=== PATIENT | female | born 1945 | race Caucasian/White ===

== ENCOUNTER 2021-06-21 14:17 | Inpatient (IN) | payer MEDICARE, OTHER ==
[~2021-06-21] VITALS: Ht 160 cm; Wt 79.8 kg
--- NOTE | 2021-06-21 14:36 | NUR ---
[id number] FOR GEN BODY WEAKNESS AND INCREASED CONFUSION X 2 WEEKS. C/O ABDOMINAL PAIN SINCE LAST NIGHT. THE PATIENT IS ALERT AND ORIENTED X1. IN ROOM AIR AND DENIES SOB. RESPIRATION REGULAR AND UNLABORED. ATTACHED TO THE MONITOR. WARM BLANKET PROVIDED FOR COMFORT. WILL CONTINUE TO MONITOR THE PATIENT.
--- NOTE | 2021-06-21 14:58 | NUR ---
SON IS CRISS [phone] AND ACUPUNCTURE PHYSICIAN.
[2021-06-21] MEDS ORDERED: IV NS 0.9% 1,000 ML BAG IV ONE (15:00)
--- NOTE | 2021-06-21 15:10 | NUR ---
IV LINE IS ESTABLISHED, BLOOD SPECIMEN COLLECTED AND SENT TO THE LAB. THE LINE IS SALINE LOCKED.
--- NOTE | 2021-06-21 15:11 | NUR ---
RN DRAWN LABS, CALLED MAIN LAB FOR VIDEO SOFTWARE ENGINEER
--- NOTE | 2021-06-21 15:17 | NUR ---
THE PATIENT IS TAKEN TO CT VIA RNEY
[2021-06-21 15:25] LABS: BASOPHILS % (AUTO) 0.4 % (0.0-2.0); HEMATOCRIT 42 % (33-45); HEMOGLOBIN 14.1 g/dL (11.5-14.8); LYMPHOCYTES # (AUTO) 0.9 K/uL (0.8-4.8); LYMPHOCYTES % (AUTO) 18.6 % (20.0-44.0); MEAN CORPUSCULAR HGB CONC 34 g/dl (31.0-36.0); MEAN CORPUSCULAR VOLUME 88 fL (82-100); MONOCYTES # (AUTO) 0.5 K/uL (0.1-1.30); MONOCYTES % (AUTO) 9.3 % (2.0-12.0); NEUTROPHILS # (AUTO) 3.5 K/uL (1.8-8.9); NEUTROPHILS % (AUTO) 71.7 % (43.0-81.0); PLATELET COUNT (AUTO) 158 K/uL (150-450); RED BLOOD CELL COUNT(AUTO) 4.74 MIL/uL (4.0-5.2); WHITE BLOOD COUNT (AUTO) 4.8 K/uL (4.3-11.0)
[2021-06-21 16:00] LABS: ALANINE AMINOTRANSFERASE 23 U/L (12-78); ALBUMIN 3.2 g/dL (3.4-5.0); ALKALINE PHOSPHATASE 49 U/L (46-116); ASPARTATE AMINOTRANSFERASE 33 U/L (15-37); BILIRUBIN,DIRECT 0.2 mg/dL (0.0-0.2); BILIRUBIN,TOTAL 0.4 mg/dL (0.2-1.0); CALCIUM, SERUM 8.1 mg/dL (8.5-10.1); CARBON DIOXIDE 28 mmol/L (21-32); CHLORIDE 98 mmol/L (98-107); CREATININE 0.9 mg/dL (0.6-1.3); GLUCOSE 106 mg/dL (74-106); POTASSIUM 3.4 mmol/L (3.5-5.1); SODIUM SERUM 137 mmol/L (136-145); TOTAL PROTEIN, SERUM 7.7 g/dL (6.4-8.2); UREA NITROGEN, BLOOD 10 mg/dL (7-18)
--- NOTE | 2021-06-21 16:20 | NUR ---
LAB CALLED LACTIC ACID 2.2
--- NOTE | 2021-06-21 16:44 | NUR ---
urine collected and sent to the lab
--- NOTE | 2021-06-21 16:45 | NUR ---
covid antigen swab done and sent to the lab
[2021-06-21 18:00] LABS: BILIRUBIN,URINE NEGATIVE (NEGATIVE); COLOR,URINE YELLOW (YELLOW); LEUKOCYTE ESTERASE ,URINE TRACE (NEGATIVE); NITRITE, URINE POSITIVE (NEGATIVE); PROTEIN,URINE 30 mg/dl (NEGATIVE); UGLUCOSE NEGATIVE (NEGATIVE); UROBILINOGEN,URINE 0.2 EU/dL (0.2)
[2021-06-21 18:25] LABS: WBC,URINE 51-80 /HPF (0-3)
[2021-06-21 18:26] LABS: BACTERIA,URINE 4+ /HPF (None Seen); SQUAMOUS EPITHELIAL CELL,UR Few /HPF (None Seen)
--- NOTE | 2021-06-21 19:21 | NUR ---
REPORT GIVEN TO NURSE FELIX FOR MARLI
[2021-06-21] MEDS ORDERED: CEFTRIAXONE 1GM BAG (ER ONLY) 50 ML IV ONE ×2 (19:30→20:11)
[2021-06-21] MEDS ORDERED: Z GUARD REMEDY 4 OZ OINT TP PRN (22:00)
[2021-06-21] MEDS ORDERED: ONDANSETRON HCL/PF 4 MG/2 ML VIAL IVP PRN (22:00)
[2021-06-21] MEDS ORDERED: MAGNESIUM HYDROXIDE 30 ML UDC PO PRN (22:00)
--- NOTE | 2021-06-21 22:07 | NUR ---
RN NOTE REPORT RECEIVED BY JOSE TAMAYO, FOR MARLI.
--- NOTE | 2021-06-21 22:07 | NUR ---
REPORT GIVEN TO DIANA RICHMOND RN FOR MARLI
[2021-06-21] MEDS ORDERED: AZITHROMYCIN 500 MG in IV D5W 250 ML IV SCH (22:30)
[2021-06-21] MEDS ORDERED: POTASSIUM CHLORIDE 20 MEQ TAB.PRT.SR PO ONE (22:30)
--- NOTE | 2021-06-21 22:38 | NUR ---
TRANSFERRED TO 108 UNDER ACLS
[2021-06-21 22:52] VITALS: BP 139/60
--- NOTE | 2021-06-21 22:52 | NUR ---
RN NOTE PT TRANSFERRED TO [facility] VIA GURNEY FROM ER. PT IS ON 3L OF O2 VIA NC SHOWING NO S/S OF RESP DISTRESS. CURRENT OXYGEN SATURATION ON 3L IS 96%. PT IS CONFUSED, ALERT AND ORIENTED X1, ONLY TO NAME. ON CLAY DRY PRESS MIXER OPERATOR SHOWING SB. SKIN INTACT. ON CARDIAC DIET. IV ACCESS NOTED ON LEFT WRIST #20, LINE FLUSHED, PATENT, AND INTACT WITH NO SIGNS OF INFILTRATION. PT HAD TEMPERATURE OF 100.1. TYLENOL GIVEN AND COOLING MEASURES PROVIDED. WILL RE-ASSESS PATIENT. ALL SAFETY MEASURES IMPLEMENTED. CALL LIGHT WITHIN REACH. BED ALARM ON. BED LOCKED AND IN LOWEST POSITION. SIDE RAILS UP. WILL CONTINUE TO MONITOR AND ASSESS FOR ANY CHANGES DURING SHIFT.
[2021-06-21] MEDS ORDERED: AZITHROMYCIN 500 MG VIAL ONE (23:07)
[2021-06-21] MEDS: ACETAMINOPHEN 325 MG TABLET PO PRN (23:07)
[2021-06-22] VITALS: BP 119/68
--- NOTE | 2021-06-22 | NUR ---
RN NOTE PT TEMPERATURE NOW 98.3. WILL CONTINUE TO MONITOR AND ASSESS FOR ANY CHANGES.
[2021-06-22 04:00] VITALS: BP 139/64
--- NOTE | 2021-06-22 05:30 | NUR ---
RN NOTE PT PULLED OUT IV LINE. IV RE-INSERTED IN RIGHT HAND #20. LINE FLUSHED, PATENT, AND INTACT WITH GOOD BLOOD RETURN.
--- NOTE | 2021-06-22 06:39 | NUR ---
RN NOTE NO CHANGES IN PT CONDITION DURING SHIFT. PT IS NOW ON 2L OF O2 VIA NC SHOWING NO S/S OF RESP DISTRESS. PT IS CONFUSED, ALERT AND ORIENTED X1, ONLY TO NAME. ON CONFERENCE ORGANIZER SHOWING SB. IV ACCESS NOTED ON RIGHT HAND #20, LINE FLUSHED, PATENT, AND INTACT WITH NO SIGNS OF INFILTRATION. ALL DUE MEDS GIVEN ORDERED. PT KEPT CLEAN AND COMFORTABLE. ALL SAFETY MEASURES IMPLEMENTED. CALL LIGHT WITHIN REACH. BED ALARM ON. BED LOCKED AND IN LOWEST POSITION. SIDE RAILS UP. WILL ENDORSE TO MORNING SHIFT RN FOR MARLI.
[2021-06-22] MEDS ORDERED: ENAL10TA39 PO (07:02)
[2021-06-22] MEDS ORDERED: ATOR20TA PO (07:02)
--- NOTE | 2021-06-22 07:20 | NUR ---
RN NOTE REPORT REC'D FR. CHLOE RN. PATIENT IS A/A/O X1.NO SOB TOLERATING O2 AT 3LPM. SATURATING AT95 %. ON ISOLATION PRECAUTION OBSERVED. IV TO RH IS PATENT AND INTACT. SINUS HENRY ON THE MONITOR. RESTRAINTS TO LINETTE. WRIST TO PREVENT PULLING OF IV LINE. SAFETY PRECAUTIONS OBSERVED. CALL LIGHT WITHIN REACH. WILL CONTINUE TO MONITOR.
[2021-06-22] MEDS: PANTOPRAZOLE 40 MG TABLET.DR PO SCH (07:47)
[2021-06-22 08:00] VITALS: BP 140/70
[2021-06-22 08:41] LABS: BASOPHILS % (AUTO) 0.2 % (0.0-2.0); HEMATOCRIT 43 % (33-45); HEMOGLOBIN 14.4 g/dL (11.5-14.8); LYMPHOCYTES % (AUTO) 19.9 % (20.0-44.0); MEAN CORPUSCULAR HGB CONC 34 g/dl (31.0-36.0); MEAN CORPUSCULAR VOLUME 87 fL (82-100); MONOCYTES # (AUTO) 0.4 K/uL (0.1-1.30); MONOCYTES % (AUTO) 7.1 % (2.0-12.0); NEUTROPHILS # (AUTO) 3.8 K/uL (1.8-8.9); NEUTROPHILS % (AUTO) 72.8 % (43.0-81.0); PLATELET COUNT (AUTO) 157 K/uL (150-450); RED BLOOD CELL COUNT(AUTO) 4.87 MIL/uL (4.0-5.2); WHITE BLOOD COUNT (AUTO) 5.2 K/uL (4.3-11.0)
[2021-06-22 09:29] LABS: CALCIUM, SERUM 8.1 mg/dL (8.5-10.1); CREATININE 0.8 mg/dL (0.6-1.3); POTASSIUM 3.6 mmol/L (3.5-5.1)
[2021-06-22 09:47] LABS: MAGNESIUM 2.4 mg/dL (1.8-2.4)
[2021-06-22] MEDS: DEXAMETHASONE SOD PHOSPHATE 10 MG/ML VIAL IV SCH (10:11)
[2021-06-22 12:00] VITALS: BP 122/58
[2021-06-22] MEDS: CEFTRIAXONE 2 G in IV D5W 100 ML IV SCH (14:20)
[2021-06-22 16:00] VITALS: BP 143/70
--- NOTE | 2021-06-22 19:01 | NUR ---
RN NOTE PT'S CONDITION REMAINS UNCHANGED.. NO SOB. NO COMPLAINTS MADE. LINETTE SOFT WRIST RESTRAINTS FOR SAFETY. SR ON MONITOR. DUE MEDS GIVEN ORDERED. SAFETY AND ISOLATION PRECAUTIONS OBSERVED. WILL ENDORSE CARE TO NOC RN
--- NOTE | 2021-06-22 19:40 | NUR ---
RN NOTE PT NOT IN DISTRESS, BERMUDIAN SPEAKING. RESTING. IV SALINE LOCK. NEEDS ATTENDED. SAFETY MEASURES IN PLACE WILL CONT TO MONITOR.
[2021-06-22 20:00] VITALS: BP 145/68
[2021-06-22] MEDS ORDERED: CEFTRIAXONE 1 G in IV D5W 50 ML IV SCH (21:00)
[2021-06-23 07:05] LABS: BASOPHILS % (AUTO) 0.1 % (0.0-2.0); HEMATOCRIT 38 % (33-45); HEMOGLOBIN 13.3 g/dL (11.5-14.8); LYMPHOCYTES # (AUTO) 0.8 K/uL (0.8-4.8); LYMPHOCYTES % (AUTO) 12.4 % (20.0-44.0); MEAN CORPUSCULAR HGB CONC 35 g/dl (31.0-36.0); MEAN CORPUSCULAR VOLUME 85 fL (82-100); MONOCYTES # (AUTO) 0.4 K/uL (0.1-1.30); MONOCYTES % (AUTO) 6.9 % (2.0-12.0); NEUTROPHILS # (AUTO) 5.3 K/uL (1.8-8.9); NEUTROPHILS % (AUTO) 80.6 % (43.0-81.0); PLATELET COUNT (AUTO) 181 K/uL (150-450); RED BLOOD CELL COUNT(AUTO) 4.44 MIL/uL (4.0-5.2); WHITE BLOOD COUNT (AUTO) 6.5 K/uL (4.3-11.0)
--- NOTE | 2021-06-23 07:26 | NUR ---
RN NOTE CLOSING PT REFUSED VITALS AT MIDNIGHT, 0400. BECAME COMBATIVE. GAVE UPDATE TO SON, WOULD LIKE THE DOCTOR TO CALL HIM DIRECTLY FOR DETAILED UPDATE. SON, CRISS TO DROP OFF FOOD PT PO INTAKE IS DECREASED. NEW IV SITE, LEFT HAND #20. REPORT GIVEN TO DAY SHIFT FOR CONTINUATION OF CARE.
[2021-06-23] MEDS: PANTOPRAZOLE 40 MG TABLET.DR PO SCH (07:30)
--- NOTE | 2021-06-23 07:30 | NUR ---
RN NOTES RECEIVED PATIENT AWAKE, ALERT/ORIENTED X 3. PATIENT ON 3LPM VIA NC TOLERATING WELL WITH SAT OF 93%. BREATHING EVEN AND UNLABORED. NO SOB OR ANY DISTRESS NOTED AT THE TIME. IV ACCESS ON LEFT HAND # 22, NO S/S OF INFILTRATIONS. ALL SAFETY MEASURES IN PLACED. PATIENT BED ALARM IS ON. HEAD OF BED ELEVATED. BED IS LOCKED, IN LOWEST POSITION AND SIDE RAILS UP. CALL LIGHT WITHIN REACH OF THE PATIENT. APPLICABLE ISOLATION PRECAUTIONS IN PLACE. WILL CONTINUE TO MONITOR AND REASSESS FOR ANY CHANGES AND WILL CARRY OUT ANY ONGOING AND ACTIVE MD ORDER.
[2021-06-23 07:39] LABS: CALCIUM, SERUM 8.5 mg/dL (8.5-10.1); CARBON DIOXIDE 23 mmol/L (21-32); CHLORIDE 101 mmol/L (98-107); CREATININE 0.8 mg/dL (0.6-1.3); GLUCOSE 115 mg/dL (74-106); POTASSIUM 3.3 mmol/L (3.5-5.1); SODIUM SERUM 138 mmol/L (136-145); UREA NITROGEN, BLOOD 13 mg/dL (7-18)
[2021-06-23 08:00] VITALS: BP 140/68
[2021-06-23] MEDS: DEXAMETHASONE SOD PHOSPHATE 10 MG/ML VIAL IV SCH (08:05)
--- NOTE | 2021-06-23 08:15 | NUR ---
RN NOTE PATIENT SPIT UP MEDICATION PROTONIX. WILL ATTEMPT TO FEED PATIENT WHEN PATIENT IS MORE CALM.
--- NOTE | 2021-06-23 09:00 | NUR ---
RN NOTE INFORMED DR. TRENT TO CALL SON CRISS FOR AN UPDATE ON PATIENT, WILL CALL WHEN AVAILABLE. .
[2021-06-23] MEDS: POTASSIUM CL. PREMIX PERIPHER. 50 ML IV SCH ×4 (09:24→12:30)
--- NOTE | 2021-06-23 12:16 | NUR ---
RN NOTE PATIENT REFUSED TO HAVE BLOOD PRESSURE TAKEN. REDIRECTED PATIENT. ALL NEEDS ATTENDED. ALL SAFETY MEASURES IN PLACE. BED LOCKED, IN LOWEST POSITION WITH SIDE RAILS UP, BED ALARM ON. CALL LIGHT WITHIN REACH. WILL CONTINUE TO MONITOR.
[2021-06-23] MEDS ORDERED: REMDESIVIR (CHARGED) 200 MG, *LOADING DOSE 1 EA in IV NS 0.9% 210 ML IV ONE (13:00)
[2021-06-23] MEDS: CEFTRIAXONE 2 G in IV D5W 100 ML IV SCH (13:09)
[2021-06-23 16:00] VITALS: BP 135/78
--- NOTE | 2021-06-23 18:56 | NUR ---
RN CLOSING NOTE: PATIENT REMAINS IN STABLE CONDITION THROUGHOUT SHIFT WITH NO SIGNS OF RESPIRATORY DISTRESS, PATIENT STILL ON O2 3LPM VIA NC,TOLERATING WELL SATURATING @ >94% SP02. IV ACCESS ON LEFT HAND #22 MAINTAINED INTACT, PATENT, NO S/S OF INFILTRATION. ALL DUE MEDS GIVEN ORDERED PATIENT TOLERATED WELL. PATIENT KEPT CLEAN AND COMFORTABLE THROUGHOUT THE SHIFT. ALL NEEDS MET. PATIENT'S FAMILY MEMBER, SON BY WINDOW VISITING. BROUGHT IN PHONE AND MEAT MARKET MANAGER, ADDED ON PATIENT'S BELONGINGS LIST ON CHART. ISOLATION PRECAUTIONS MAINTAINED. ALL SAFETY MEASURES IN PLACE. HOB ELEVATED, BED IN LOWEST POSITION, LOCKED WITH SIDE RAILS UP. CALL LIGHT WITHIN REACH. WILL ENDORSE TO ONCOMING NURSE FOR CONTINUITY OF CARE.
--- NOTE | 2021-06-23 19:30 | NUR ---
MS RN OPENING NOTE RECEIVED PT IN BED, AWAKE AND RESTING. PT IS A/O X3. STABLE ON 3L OXYGEN VIA NC. PT IS ON EXTERNAL CUTTER OPERATOR ASBESTOS SHINGLE READING SINUS BRADYCARDIA @ 48. NO SOB OR RESPIRATORY DISTRESS NOTED, NO C/O PAIN AT THIS TIME. RESPIRATIONS EVEN AND UNLABORED. IV ACCESS NOTED IN LEFT HAND G# 22. BILATERAL SOFT RESTRAINTS NOTED. FALL AND SAFETY MEASURES IN PLACE AND MAINTAINED AT ALL TIMES. BED ALARM ON, BED IN LOW AND LOCKED POSITION, HOB ELEVATED TO SEMI FOWLERS POSITION, CALL LIGHT AND TABLE WITHIN REACH. SIDE RAILS UP X2. WILL CONTINUE WITH PLAN OF CARE. Addendum: 06/23/21 at 2012 by ELVIA REEDER RN MANAGER MANAGING OPENING NOTE RECEIVED PT IN BED, AWAKE AND RESTING. PT IS A/O X3. STABLE ON 3L OXYGEN VIA NC. PT IS ON EXTERNAL CUTTER OPERATOR ASBESTOS SHINGLE READING SINUS BRADYCARDIA @ 48. NO SOB OR RESPIRATORY DISTRESS NOTED, NO C/O PAIN AT THIS TIME. RESPIRATIONS EVEN AND UNLABORED. IV ACCESS NOTED IN LEFT HAND G# 22. BILATERAL SOFT RESTRAINTS NOTED. FALL AND SAFETY MEASURES IN PLACE AND MAINTAINED AT ALL TIMES. BED ALARM ON, BED IN LOW AND LOCKED POSITION, HOB ELEVATED TO SEMI FOWLERS POSITION, CALL LIGHT AND TABLE WITHIN REACH. SIDE RAILS UP X2. WILL CONTINUE WITH PLAN OF CARE. Addendum: 06/23/21 at 2022 by ELVIA REEDER RN MANAGER MANAGING OPENING NOTE RECEIVED PT IN BED, AWAKE AND RESTING. PT IS A/O X3. STABLE ON 3L OXYGEN VIA NC. PT IS ON EXTERNAL CUTTER OPERATOR ASBESTOS SHINGLE READING SINUS BRADYCARDIA @ 48. NO SOB OR RESPIRATORY DISTRESS NOTED, NO C/O PAIN AT THIS TIME. RESPIRATIONS EVEN AND UNLABORED. IV ACCESS NOTED IN LEFT HAND G# 22. BILATERAL SOFT RESTRAINTS NOTED. FALL AND SAFETY MEASURES IN PLACE AND MAINTAINED AT ALL TIMES. BED ALARM ON, BED IN LOW AND LOCKED POSITION, HOB ELEVATED TO SEMI FOWLERS POSITION, CALL LIGHT AND TABLE WITHIN REACH. SIDE RAILS UP X2. WILL CONTINUE WITH PLAN OF CARE.
[2021-06-23 20:00] VITALS: BP 115/81
[2021-06-24] VITALS: BP_SYST 14; BP_SYST 141; BP_DIAS 69
[2021-06-24 04:00] VITALS: BP 162/78
--- NOTE | 2021-06-24 05:00 | NUR ---
PTS BP 162/78. DR RAMÍREZ MADE AWARE. WILL CONTINUE TO MONITOR.
--- NOTE | 2021-06-24 06:00 | NUR ---
RN-CLOSING NOTES PATIENT IN BED AWAKE,ALERT/ 3, PT COMBATIVE, KICKING AND SPITTING, REFUSED AM LABS. NO ACUTE DISTRESS NOTED. REMAINED STABLE ON 3L OXYGEN VIA NC. ALL MEDS, CARE PROVIDED ORDERED . REPOSITION Q2HR . RESTRAINTS EVALUATED DURING SHIFT. ALL NEEDS ATTENDED AND ANTICIPATED.WILL ENDORSE TO ONCOMING NURSE FOR CONTINUITY OF CARE.
--- NOTE | 2021-06-24 07:50 | NUR ---
RN OPENING NOTES RECEIVED PATIENT AWAKE, ALERT/ORIENTED X 3. PATIENT ON 3LPM VIA NC TOLERATING WELL WITH SAT OF 95%. BREATHING EVEN AND UNLABORED. NO SOB OR ANY DISTRESS NOTED AT THE TIME. IV ACCESS ON LEFT HAND # 22, NO S/S OF INFILTRATIONS. PATIENT WITH BILATERAL SOFT WRISTS RESTRAINTS. ALL SAFETY MEASURES IN PLACED. PATIENT BED ALARM IS ON. HEAD OF BED ELEVATED. BED IS LOCKED, IN LOWEST POSITION AND SIDE RAILS UP. CALL LIGHT WITHIN REACH OF THE PATIENT. APPLICABLE ISOLATION PRECAUTIONS IN PLACE. WILL CONTINUE TO MONITOR.
[2021-06-24 08:00] VITALS: BP 149/67
[2021-06-24] MEDS: DEXAMETHASONE SOD PHOSPHATE 10 MG/ML VIAL IV SCH (08:32)
[2021-06-24] MEDS: PANTOPRAZOLE 40 MG TABLET.DR PO SCH (08:32)
[2021-06-24] MEDS ORDERED: ENALAPRIL MALEATE (10 MG) 10 MG TABLET PO SCH (09:00)
[2021-06-24] MEDS: ENALAPRIL MALEATE (5 MG) 5 MG TABLET PO SCH (11:45)
[2021-06-24 12:00] VITALS: BP 133/65
[2021-06-24] MEDS: CEFTRIAXONE 2 G in IV D5W 100 ML IV SCH (13:15)
[2021-06-24] MEDS ORDERED: REMDESIVIR (CHARGED) 100 MG in IV NS 0.9% 230 ML IV SCH (15:00)
[2021-06-24 16:00] VITALS: BP 134/65
[2021-06-24] MEDS: ENSURE ENLIVE 237 ML LIQUID (VANILLA) PO SCH (17:50)
--- NOTE | 2021-06-24 18:44 | NUR ---
RN CLOSING NOTES PATIENT IN STABLE CONDITION THROUGHOUT SHIFT. NO SIGNIFICANT CHANGES THROUGHOUT SHIFT. ON 3LPM O2 VIA NC, TOLERATING WELL. SAT OF 94%. BREATHING EVEN AND UNLABORED. NO SOB OR RESPIRATORY DISTRESS NOTED. IV ACCESS ON LEFT HAND G#20, PATENT AND INTACT. BILATERAL SOFT RESTRAINTS MAINTAINED, RELEASED FOR CIRCULATION, SKIN INTACT AND CLEAN. ALL DUE MEDS GIVEN ORDERED, TOLERATED WELL. ALL NEEDS MET. KEPT PATIENT CLEAN, DRY AND COMFORTABLE. APPLICABLE ISOLATION PRECAUTIONS MAINTAINED. ALL SAFETY MEASURES IMPLEMENTED. HOB ELEVATED. BED IN LOWEST POSITION, LOCKED WITH SIDE RAILS UP. CALL LIGHT WITHIN REACH OF PATIENT. WILL ENDORSE TO ONCOMING NURSE FOR CONTINUITY OF CARE.
--- NOTE | 2021-06-24 19:30 | NUR ---
RN OPENING NOTE PATIENT IN BED, AWAKE. A/O X 1-2, TAJIK SPEAKING ABLE TO UNDERSTAND AND SPEAK SOME LATVIAN. PATIENT IS ON 3LPM, NO SOB NOTED. PATIENT HAS LINETTE SOFT WRIST RESTRAINTS, NO SIGNS OF INJURY. PATIENT COMBATIVE. SAFETY MEASURES IN PLACE: BED LOCKED AND IN LOWEST POSITION, CALL LIGHT WITHIN REACH, SIDE RAILS UP. PATIENT HAS A L HAND IV ACCESS WRAPPED IN KERLIX. ON ISOLATION PRECAUTIONS FOR COVID 19. WILL MONITOR PATIENT CLOSELY.
[2021-06-24 20:00] VITALS: BP 146/77
--- NOTE | 2021-06-24 20:25 | NUR ---
rhand 22 g inserted, patient able to pull out iv access on l hand
[2021-06-24] MEDS: ATORVASTATIN 10 MG TABLET PO SCH (21:04)
[2021-06-25] MEDS: ACETAMINOPHEN 325 MG TABLET PO PRN ×2 (01:13→21:01)
[2021-06-25 04:00] VITALS: BP 152/80
[2021-06-25 05:00] VITALS: BP 152/80
--- NOTE | 2021-06-25 06:53 | NUR ---
RN CLOSING NOTE PATIENT IN BED, AWAKE. A/O X 1-2, CHINESE SPEAKING ABLE TO UNDERSTAND AND SPEAK SOME BHUTANESE. PATIENT IS ON 3LPM, NO SOB NOTED. PATIENT HAS LINETTE SOFT WRIST RESTRAINTS, NO SIGNS OF INJURY. PATIENT SOMEWHAT COMBATIVE, FAMILY INVOLVEMENT CALMS DOWN PATIENT. SAFETY MEASURES IN PLACE: BED LOCKED AND IN LOWEST POSITION, CALL LIGHT WITHIN REACH, SIDE RAILS UP. PATIENT HAS R HAND 22 G, WRAPPED IN KERLIX, PATENT AND INTACT. RE-EDUCATED PATIENT ON RESTRAINTS AND POC. ALL NEEDS MET AND ATTENDED. ALL ORDERS CARRIED OUT. WILL ENDORSE TO DAY SHIFT NURSE FOR MARLI.
--- NOTE | 2021-06-25 07:27 | NUR ---
RN Note Patient received in bed AO x 3, able to responds all stimuli. Respiratory even and unlabored with oxygen at 3Ls via NC, no SOB observed. Skin is warm to touch, keep clean/dry. Patient does no appears pain or discomfort this morning. Refused blood draw for lab. in morning. Call light within reach, kept elevated HOB for ensure airway and lower bed position for safety. Will continue to monitor.
[2021-06-25] MEDS: PANTOPRAZOLE 40 MG TABLET.DR PO SCH (07:54)
[2021-06-25] MEDS: ENALAPRIL MALEATE (5 MG) 5 MG TABLET PO SCH (08:13)
[2021-06-25] MEDS: ENOXAPARIN SODIUM 30 MG/0.3 ML DISP.SYRIN SQ SCH (08:14)
[2021-06-25] MEDS: DEXAMETHASONE SOD PHOSPHATE 10 MG/ML VIAL IV SCH (08:15)
[2021-06-25] MEDS: ENSURE ENLIVE 237 ML LIQUID (VANILLA) PO SCH ×2 (13:38→17:27)
[2021-06-25] MEDS: CEFTRIAXONE 2 G in IV D5W 100 ML IV SCH (13:45)
[2021-06-25] MEDS: REMDESIVIR (CHARGED) 100 MG in IV NS 0.9% 100 ML IV SCH (15:22)
[2021-06-25 15:34] LABS: BASOPHILS % (AUTO) 0.3 % (0.0-2.0); HEMATOCRIT 41 % (33-45); HEMOGLOBIN 14.2 g/dL (11.5-14.8); LYMPHOCYTES # (AUTO) 0.3 K/uL (0.8-4.8); LYMPHOCYTES % (AUTO) 4.5 % (20.0-44.0); MEAN CORPUSCULAR HGB CONC 34 g/dl (31.0-36.0); MEAN CORPUSCULAR VOLUME 87 fL (82-100); MONOCYTES # (AUTO) 0.3 K/uL (0.1-1.30); MONOCYTES % (AUTO) 4.8 % (2.0-12.0); NEUTROPHILS # (AUTO) 5.9 K/uL (1.8-8.9); NEUTROPHILS % (AUTO) 90.4 % (43.0-81.0); PLATELET COUNT (AUTO) 291 K/uL (150-450); RED BLOOD CELL COUNT(AUTO) 4.77 MIL/uL (4.0-5.2); WHITE BLOOD COUNT (AUTO) 6.5 K/uL (4.3-11.0)
[2021-06-25 15:49] LABS: ALBUMIN 2.5 g/dL (3.4-5.0); BILIRUBIN,DIRECT 0.1 mg/dL (0.0-0.2); BILIRUBIN,TOTAL 0.2 mg/dL (0.2-1.0); CALCIUM, SERUM 7.9 mg/dL (8.5-10.1); CREATININE 0.9 mg/dL (0.6-1.3); POTASSIUM 3.4 mmol/L (3.5-5.1); TOTAL PROTEIN, SERUM 7.2 g/dL (6.4-8.2)
[2021-06-25 16:00] VITALS: BP 162/97
[2021-06-25 17:43] VITALS: BP 150/67
--- NOTE | 2021-06-25 17:58 | NUR ---
RN Closing Note Patient resting in bed, remains AO x 3. Patient removed NC oxygen and tolerated, respiratory even and unlabored on room air. Does no appears pain or discomfort. Skin is warm to touch, keep clean/dry, intact new IV site on right hand. Kept elevated HOB for ensure airway and lower position of the bed for safety. Call light within reach, all needs met. will [facility] shift lead.
--- NOTE | 2021-06-25 19:15 | NUR ---
RN OPENING NOTE PATIENT IN BED, AWAKE. PATIENT IS A/O X 2, ABLE TO MAKE NEEDS KNOWN. PATIENT IS CURRENTLY ON RA TOLERATING WELL WITH 94% O2 SAT. PATIENT HAS BILATERAL SOFT WRIST RESTRAINTS D/T PATIENT PULLING OUT IV AND EQUIPMENT, COMBATIVE, PATIENT NOT COMBATIVE AT THIS TIME. PATIENT HAS A R HAND 22 G SALINE LOCKED, PATENT AND INTACT. PATIENT NO COMPLAINS OF PAIN AT THIS TIME. SAFETY MEASURES IN PLACE: BED LOCKED AND IN LOWEST POSITION, CALL LIGHT WITHIN REACH, SIDE RAILS UP. WILL MONITOR PATIENT CLOSELY. ISOLATION PRECAUTIONS IN PLACE
[2021-06-25 20:00] VITALS: BP_SYST 158; BP_SYST 163; BP_DIAS 119; BP_DIAS 79
[2021-06-25] MEDS: ATORVASTATIN 10 MG TABLET PO SCH (21:00)
[2021-06-26 04:00] VITALS: BP 156/87
--- NOTE | 2021-06-26 06:43 | NUR ---
RN CLOSING NOTE PATIENT IN BED, AWAKE. PATIENT IS A/O X 2, ABLE TO MAKE NEEDS KNOWN. PATIENT IS CURRENTLY ON RA TOLERATING WELL WITH 98% O2 SAT. PATIENT HAS BILATERAL SOFT WRIST RESTRAINTS D/T PATIENT PULLING OUT IV AND EQUIPMENT, PATIENT NOT COMBATIVE AT THIS TIME. PATIENT HAS A R HAND 22 G SALINE LOCKED, PATENT AND INTACT. PATIENT NO COMPLAINS OF PAIN AT THIS TIME. SAFETY MEASURES IN PLACE: BED LOCKED AND IN LOWEST POSITION, CALL LIGHT WITHIN REACH, SIDE RAILS UP. ISOLATION PRECAUTIONS MAINTAINED. WILL ENDORSE TO DAY SHIFT NURSE FOR MARLI.
--- NOTE | 2021-06-26 07:24 | NUR ---
RN OPENING NOTE RECEIVED PATIENT IN BED, AWAKE. PATIENT IS A/O X 2, ABLE TO MAKE NEEDS KNOWN. PATIENT IS BREATHING EVENLY AND NONLABORED CURRENTLY ON RA TOLERATING WELL WITH 94% O2 SAT. PATIENT HAS BILATERAL SOFT WRIST RESTRAINTS D/T PATIENT PULLING OUT IV AND EQUIPMENT, COMBATIVE, PATIENT NOT COMBATIVE AT THIS TIME. PATIENT HAS A R HAND 22 G SALINE LOCKED, PATENT AND INTACT. PATIENT NO COMPLAINS OF PAIN AT THIS TIME. SAFETY MEASURES IN PLACE: BED LOCKED AND IN LOWEST POSITION, CALL LIGHT WITHIN REACH, SIDE RAILS UP. ISOLATION PRECAUTIONS IN PLACE WILL CONTINUE TO MONITOR
[2021-06-26] MEDS: PANTOPRAZOLE 40 MG TABLET.DR PO SCH (08:03)
[2021-06-26] MEDS: DEXAMETHASONE SOD PHOSPHATE 10 MG/ML VIAL IV SCH (08:03)
[2021-06-26] MEDS: ENALAPRIL MALEATE (5 MG) 5 MG TABLET PO SCH (08:03)
[2021-06-26] MEDS: ENOXAPARIN SODIUM 30 MG/0.3 ML DISP.SYRIN SQ SCH (08:04)
[2021-06-26 08:33] VITALS: BP 176/78
[2021-06-26] MEDS: ENSURE ENLIVE 237 ML LIQUID (VANILLA) PO SCH ×2 (12:44→17:10)
[2021-06-26] MEDS: REMDESIVIR (CHARGED) 100 MG in IV NS 0.9% 100 ML IV SCH (15:45)
--- NOTE | 2021-06-26 15:45 | NUR ---
RN NOTE PT PULL OUT THE R HAND IV SITE ACCIDENTLY, I INSERTED NEW IV SITE AT LEFT HAND #22
[2021-06-26 16:00] VITALS: BP 148/83
--- NOTE | 2021-06-26 19:00 | NUR ---
MS RN OPENING NOTE RECEIVED PT IN BED, AWAKE AND RESTING. PT IS A/O X3. STABLE ON ROOM AIR. NO SOB OR RESPIRATORY DISTRESS NOTED, NO C/O PAIN AT THIS TIME. RESPIRATIONS EVEN AND UNLABORED. IV ACCESS NOTED IN LEFT HAND G# 22. BILATERAL SOFT RESTRAINTS NOTED. FALL AND SAFETY MEASURES IN PLACE AND MAINTAINED AT ALL TIMES. BED ALARM ON, BED IN LOW AND LOCKED POSITION, HOB ELEVATED TO SEMI FOWLERS POSITION, CALL LIGHT AND TABLE WITHIN REACH. SIDE RAILS UP X2. WILL CONTINUE WITH PLAN OF CARE.
--- NOTE | 2021-06-26 19:01 | NUR ---
RN NOTE REMAIN PATIENT IN BED, AWAKE. PATIENT IS A/O X 2, ABLE TO MAKE NEEDS KNOWN. PATIENT IS BREATHING EVENLY AND NONLABORED CURRENTLY ON RA TOLERATING WELL WITH 94% O2 SAT. PATIENT HAS BILATERAL SOFT WRIST RESTRAINTS D/T PATIENT PULLING OUT IV AND EQUIPMENT, COMBATIVE, PATIENT NOT COMBATIVE AT THIS TIME. PATIENT HAS A LEFT HAND 22 G SALINE LOCKED, PATENT AND INTACT. PATIENT NO COMPLAINS OF PAIN AT THIS TIME. SAFETY MEASURES IN PLACE: BED LOCKED AND IN LOWEST POSITION, CALL LIGHT WITHIN REACH, SIDE RAILS UP. ISOLATION PRECAUTIONS IN PLACE WILL ENDORSE MARLI TO NOC SHIFT
[2021-06-26] MEDS: ATORVASTATIN 10 MG TABLET PO SCH ×3 (21:56→22:46)
[2021-06-27] VITALS: BP 126/72
--- NOTE | 2021-06-27 06:30 | NUR ---
RN CLOSING NOTE PT REMAINED STABLE THROUGHOUT SHIFT. WILL ENDORSE TO AM RN FOR MARLI.
[2021-06-27 08:00] VITALS: BP 156/100
--- NOTE | 2021-06-27 08:08 | NUR ---
RN OPENING NOTE RECEIVED PT IN BED, AWAKE AND RESTING. PT IS A/O X3. STABLE ON ROOM AIR TOLERATING WELL NO SOB OR RESPIRATORY DISTRESS NOTED, NO C/O PAIN AT THIS TIME. RESPIRATIONS EVEN AND UNLABORED. IV ACCESS NOTED IN LEFT HAND G# 22. BILATERAL SOFT RESTRAINTS NOTED. FALL AND SAFETY MEASURES IN PLACE AND MAINTAINED AT ALL TIMES. BED ALARM ON, BED IN LOWEST AND LOCKED POSITION, CALL LIGHT AND TABLE WITHIN REACH. SIDE RAILS UP X2. WILL CONTINUE TO MONITOR
[2021-06-27] MEDS: ENOXAPARIN SODIUM 30 MG/0.3 ML DISP.SYRIN SQ SCH (08:30)
[2021-06-27] MEDS: DEXAMETHASONE SOD PHOSPHATE 10 MG/ML VIAL IV SCH (08:31)
[2021-06-27] MEDS: ENALAPRIL MALEATE (5 MG) 5 MG TABLET PO SCH (08:31)
[2021-06-27] MEDS: PANTOPRAZOLE 40 MG TABLET.DR PO SCH (08:33)
--- NOTE | 2021-06-27 08:46 | NUR ---
RN NOTE PT IS VERY COMBATIVE REFUSING MEDS AND BREAKFAST WILL TRY AGAIN AND CONTINUE TO MONITOR
[2021-06-27] MEDS: LORAZEPAM INJ 2 MG/ML VIAL IV PRN ×2 (10:05→21:22)
[2021-06-27] MEDS: ENSURE ENLIVE 237 ML LIQUID (VANILLA) PO SCH ×2 (12:01→18:21)
[2021-06-27 14:52] LABS: BASOPHILS % (AUTO) 0.2 % (0.0-2.0); HEMATOCRIT 43 % (33-45); HEMOGLOBIN 14.8 g/dL (11.5-14.8); LYMPHOCYTES # (AUTO) 0.6 K/uL (0.8-4.8); MEAN CORPUSCULAR HGB CONC 34 g/dl (31.0-36.0); MEAN CORPUSCULAR VOLUME 85 fL (82-100); MONOCYTES # (AUTO) 0.3 K/uL (0.1-1.30); MONOCYTES % (AUTO) 2.8 % (2.0-12.0); NEUTROPHILS # (AUTO) 8.6 K/uL (1.8-8.9); PLATELET COUNT (AUTO) 405 K/uL (150-450); RED BLOOD CELL COUNT(AUTO) 5.09 MIL/uL (4.0-5.2); WHITE BLOOD COUNT (AUTO) 9.5 K/uL (4.3-11.0)
[2021-06-27 15:25] LABS: ALBUMIN 2.9 g/dL (3.4-5.0); BILIRUBIN,DIRECT 0.2 mg/dL (0.0-0.2); BILIRUBIN,TOTAL 0.6 mg/dL (0.2-1.0); CALCIUM, SERUM 8.4 mg/dL (8.5-10.1); CREATININE 0.8 mg/dL (0.6-1.3); POTASSIUM 3.4 mmol/L (3.5-5.1); TOTAL PROTEIN, SERUM 7.5 g/dL (6.4-8.2)
[2021-06-27] MEDS: REMDESIVIR (CHARGED) 100 MG in IV NS 0.9% 100 ML IV SCH (15:51)
[2021-06-27 16:00] VITALS: BP 147/82
--- NOTE | 2021-06-27 18:58 | NUR ---
RN CLOSING NOTE PT REMAINS IN BED, AWAKE AND RESTING. PT IS A/O X3. STABLE ON ROOM AIR TOLERATING WELL NO SOB OR RESPIRATORY DISTRESS NOTED, NO C/O PAIN AT THIS TIME. RESPIRATIONS EVEN AND UNLABORED. IV ACCESS NOTED IN LEFT HAND G# 22. BILATERAL SOFT RESTRAINTS NOTED. NO SIGNIFICANT CHANGES DURING SHIFT REMDESIVIR COMPLETED AND TOLERATED WELL, FALL AND SAFETY MEASURES IN PLACE AND MAINTAINED AT ALL TIMES. BED ALARM ON, BED IN LOWEST AND LOCKED POSITION, CALL LIGHT WITHIN REACH. WILL ENDORSE TO CENTRAL CONTROL ROOM OPERATORLABORER WRECKING AND SALVAGING
--- NOTE | 2021-06-27 19:45 | NUR ---
RN OPENING NOTES, RECEIVED PT IN BED SITTING POSITION, ALERT, ORIENTED X3, VERBALLY RESPONSIVE. ON ROOM AIR. NO SOB, NO CHEST CONGESTION, BREATHING EVEN AND UNLABORED. IV ACCESS ON LT HAND #22 G, INTACT AND PATENT. NO S/S OF INFILTRATIONS. BILATERAL SOFT RESTRAINTS ON PLACE. NO C/O PAIN OR DISCOMFORT. NO ACUTE DISTRESS. ALL SAFETY MEASURE IN PLACE. BED SIDE X3 ON. BED IN LOW POSITION AND LOCKED. BED ALARM ON. PLACE CALL LIGHT WITH IN REACH. WILL CONTINUE TO MONITOR
[2021-06-27 20:00] VITALS: BP 155/99
--- NOTE | 2021-06-27 21:22 | NUR ---
RN NOTES: ATIVAN 0.25 MG GIVEN DUE TO SEVERE RESTLESSNESS. WILL CONTINUE TO MONITOR
[2021-06-28 04:00] VITALS: BP 155/92
--- NOTE | 2021-06-28 06:30 | NUR ---
RN CLOSING NOTES, PT IN BED ASLEEP BUT EASILY AROUSABLE. ALERT, ORIENTED X2-3 WITH CONFUSION , VERBALLY RESPONSIVE. ON ROOM AIR, O2 SAT 92%. NO SOB, NO CHEST CONGESTION, BREATHING EVEN AND UNLABORED. IV ACCESS ON LT HAND #22 G, INTACT AND PATENT. NO S/S OF INFILTRATIONS. BILATERAL SOFT RESTRAINTS ON PLACE. NO C/O PAIN OR DISCOMFORT. NO ACUTE DISTRESS. ALL SAFETY MEASURE IN PLACE. BED SIDE X3 ON. BED IN LOW POSITION AND LOCKED. BED ALARM ON. PLACE CALL LIGHT WITH IN REACH. WILL ENDORSE TO MORNING SHIFT NURSE.
[2021-06-28 06:53] LABS: BASOPHILS % (AUTO) 0.1 % (0.0-2.0); EOSINOPHILS % (AUTO) 0.1 % (0.0-6.0); HEMATOCRIT 41 % (33-45); HEMOGLOBIN 14.3 g/dL (11.5-14.8); LYMPHOCYTES # (AUTO) 0.9 K/uL (0.8-4.8); LYMPHOCYTES % (AUTO) 8.8 % (20.0-44.0); MEAN CORPUSCULAR HGB CONC 35 g/dl (31.0-36.0); MEAN CORPUSCULAR VOLUME 86 fL (82-100); MONOCYTES # (AUTO) 0.4 K/uL (0.1-1.30); MONOCYTES % (AUTO) 4.2 % (2.0-12.0); NEUTROPHILS # (AUTO) 8.9 K/uL (1.8-8.9); NEUTROPHILS % (AUTO) 86.8 % (43.0-81.0); PLATELET COUNT (AUTO) 421 K/uL (150-450); RED BLOOD CELL COUNT(AUTO) 4.81 MIL/uL (4.0-5.2); WHITE BLOOD COUNT (AUTO) 10.3 K/uL (4.3-11.0)
--- NOTE | 2021-06-28 08:00 | NUR ---
MS RN NOTE PT IN BED . ALERT, ORIENTED X2-3 WITH CONFUSION , VERBALLY RESPONSIVE. ON ROOM AIR, O2 SAT 99%. NO SOB, NO CHEST CONGESTION, BREATHING EVEN AND UNLABORED. IV ACCESS ON LT HAND #22 G, INTACT AND PATENT. NO S/S OF INFILTRATIONS. BILATERAL SOFT RESTRAINTS ON PLACE. NO C/O PAIN OR DISCOMFORT. NO ACUTE DISTRESS. ALL SAFETY MEASURE IN PLACE. BED SIDE X3 ON. BED IN LOW POSITION AND LOCKED. BED ALARM ON. PLACE CALL LIGHT WITH IN REACH. WILL ENDORSE TO MORNING SHIFT NURSE.
[2021-06-28 08:39] LABS: ALBUMIN 2.8 g/dL (3.4-5.0); BILIRUBIN,DIRECT 0.2 mg/dL (0.0-0.2); BILIRUBIN,TOTAL 0.6 mg/dL (0.2-1.0); CALCIUM, SERUM 8.7 mg/dL (8.5-10.1); CREATININE 0.7 mg/dL (0.6-1.3); POTASSIUM 2.9 mmol/L (3.5-5.1); TOTAL PROTEIN, SERUM 7.2 g/dL (6.4-8.2)
[2021-06-28 09:00] VITALS: BP 145/69
[2021-06-28] MEDS: PANTOPRAZOLE 40 MG TABLET.DR PO SCH (09:03)
[2021-06-28] MEDS: DEXAMETHASONE SOD PHOSPHATE 10 MG/ML VIAL IV SCH (09:03)
[2021-06-28] MEDS: ENOXAPARIN SODIUM 30 MG/0.3 ML DISP.SYRIN SQ SCH (09:04)
[2021-06-28] MEDS: ENALAPRIL MALEATE (5 MG) 5 MG TABLET PO SCH (09:51)
[2021-06-28] MEDS ORDERED: POTASSIUM CHLORIDE 20 MEQ TAB.PRT.SR PO SCH (10:00)
--- NOTE | 2021-06-28 10:57 | NUR ---
[facility] [employer] WEIGHER NOTE CALLED TO PHARMACY NOTIFIED K 2.9 STATED THAT WILL ORDER TO REPLACE. WILL F\U
--- NOTE | 2021-06-28 11:00 | NUR ---
ms rn note son of patient eager to take his mother home , called to dr arita stated that need to see patient first
[2021-06-28 12:00] VITALS: BP 130/70
--- NOTE | 2021-06-28 12:30 | NUR ---
ms rn note refused to0 eat lunch, offered x2
[2021-06-28] MEDS: ENSURE ENLIVE 237 ML LIQUID (VANILLA) PO SCH (13:00)
--- NOTE | 2021-06-28 14:54 | NUR ---
ms rn note son wants to take mother home and discharge, spoke with dr flor and dr karlene landry to discharge patient home, refused to have repast k level dr flor notified will f\u , spoke with caser will arrange ambulance to go home
--- NOTE | 2021-06-28 15:23 | NUR ---
ms rn note per dr bonnie landry to discharge home spoke with son ,discharge instruction given ,instructed to take home meds as ordered and new px will be ready at [facility] , instructed to f]\u with primary care doctor for potassium level and return for worsening symptoms
[2021-06-28 16:00] VITALS: BP 130/70
--- NOTE | 2021-06-28 16:30 | NUR ---
ms rn note per dr chacho landry to give walker
[2021-06-28] MEDS ORDERED: DEXA6TAB6 PO (16:36)
--- NOTE | 2021-06-28 16:46 | NUR ---
ms rn note Ativan not given , patient feels more relax and cooperative medication is waisted per protocol
--- NOTE | 2021-06-28 16:47 | NUR ---
ms anglin note ambulance arrived , report given, hl removed no bleeding noted , dry dressing noted , walker given to ambulance emplaned to son of patent how to use Addendum: 06/28/21 at 1651 by DORIS ORR RN patient taken home by ambulance with stable condition son in lobby awaiting for ambulance
--- NOTE | 2021-06-28 17:23 | NUR ---
telephone claims representative note called to pharmacy verified if new px ready , stated that will be ready and ok to picket [employer] in 30 mins also spoke with son Hamzah notified about new px and how to take and phone number pharmacy and address where to take medication stated that understood
== END 2021-06-28 18:59 | disposition left against medical advice (07) | DRG 177 ==
LOC: ER 14:19 → TELE1 21:30 → MEDSG1 06-24 09:36
PROVIDERS: ADMIT Nurse Practitioner Family; ATTEND Student in an Organized Health Care Education/Training Program
PROC: XW033E5 Introduction of Remdesivir Anti-infective into Peripheral Vein, Percutaneous Approach, New Technology Group 5 (ICD-10-PCS; principal; 2021-06-25)
DX: U07.1 COVID-19 (principal); J12.82 Pneumonia due to coronavirus disease 2019; G92.8 Other toxic encephalopathy; J96.01 Acute respiratory failure with hypoxia; E44.1 Mild protein-calorie malnutrition; N39.0 Urinary tract infection, site not specified; E87.2 Acidosis; J98.11 Atelectasis; M48.55XA Collapsed vertebra, not elsewhere classified, thoracolumbar region, initial encounter for fracture; E87.6 Hypokalemia; I10 Essential (primary) hypertension; E78.5 Hyperlipidemia, unspecified; I70.0 Atherosclerosis of aorta; F09 Unspecified mental disorder due to known physiological condition; S00.10XA Contusion of unspecified eyelid and periocular area, initial encounter; W19.XXXA Unspecified fall, initial encounter; Y92.9 Unspecified place or not applicable; F03.90 Unspecified dementia, unspecified severity, without behavioral disturbance, psychotic disturbance, mood disturbance, and anxiety; I70.8 Atherosclerosis of other arteries; B96.20 Unspecified Escherichia coli [E. coli] as the cause of diseases classified elsewhere; K57.30 Diverticulosis of large intestine without perforation or abscess without bleeding; K76.0 Fatty (change of) liver, not elsewhere classified; M47.816 Spondylosis without myelopathy or radiculopathy, lumbar region; M85.80 Other specified disorders of bone density and structure, unspecified site; Z79.01 Long term (current) use of anticoagulants
CPT/HCPCS: 36415; 70450-TC; 71045-TC; 71250-TC; 72125-TC; 80048-TC; 80076-TC; 81001; 82728-TC; 83605-TC; 83735-TC; 84484-TC; 85025-TC; 85378-TC; 85610-TC; 85730-TC; 86140-TC; 87040-TC; 87081-TC; 87086-TC; 87186-TC; 97116-TC; 97530-TC; A4216; C9803; G0378; J0456; J0696; J1100; J1650; J2060; J3480; J7030; J7050; J7060

== ENCOUNTER 2024-03-02 14:11 | Emergency (ER) | payer MEDICARE, OTHER ==
[~2024-03-02] VITALS: Ht 162.6 cm; Wt 83.5 kg
[~2024-03-02 14:11] MED LIST: ATOR20TA PO; DEXA6TAB6 PO; ENAL10TA39 PO
[2024-03-02 14:18] VITALS: TEMP 98.1
[2024-03-02 15:25] LABS: BASOPHILS % (AUTO) 0.3 % (0.0-2.0); EOSINOPHILS # (AUTO) 0.1 K/uL (0.0-0.7); EOSINOPHILS % (AUTO) 1.3 % (0.0-6.0); HEMATOCRIT 40 % (33-45); HEMOGLOBIN 13.4 g/dL (11.5-14.8); LYMPHOCYTES # (AUTO) 1.9 K/uL (0.8-4.8); LYMPHOCYTES % (AUTO) 20.2 % (20.0-44.0); MEAN CORPUSCULAR HEMOGLOBIN 30 PG (26.0-33.0); MEAN CORPUSCULAR HGB CONC 34 g/dl (31.0-36.0); MEAN CORPUSCULAR VOLUME 88 fL (82-100); MONOCYTES # (AUTO) 0.4 K/uL (0.1-1.30); MONOCYTES % (AUTO) 4.5 % (2.0-12.0); NEUTROPHILS # (AUTO) 6.8 K/uL (1.8-8.9); NEUTROPHILS % (AUTO) 73.7 % (43.0-81.0); PLATELET COUNT (AUTO) 250 K/uL (150-450); RED BLOOD CELL COUNT(AUTO) 4.53 MIL/uL (4.0-5.2); RED CELL DISTRIBUTION WIDTH 14.8 % (11.5-15.0); WHITE BLOOD COUNT (AUTO) 9.3 K/uL (4.3-11.0)
[2024-03-02] MEDS ORDERED: CYAN-51 PO (15:43)
[2024-03-02] MEDS ORDERED: ERGO500093 PO (15:43)
[2024-03-02] MEDS ORDERED: ENAL-78 PO (15:43)
[2024-03-02 15:48] LABS: CALCIUM, SERUM 9.3 mg/dL (8.5-10.1); CARBON DIOXIDE 25 mmol/L (21-32); CHLORIDE 104 mmol/L (98-107); CREATININE 0.8 mg/dL (0.6-1.3); GLUCOSE 122 mg/dL (74-106); POTASSIUM 3.8 mmol/L (3.5-5.1); SODIUM SERUM 140 mmol/L (136-145); UREA NITROGEN, BLOOD 12 mg/dL (7-18)
[2024-03-02 15:52] LABS: ALANINE AMINOTRANSFERASE 19 U/L (12-78); ALBUMIN 3.5 g/dL (3.4-5.0); ALKALINE PHOSPHATASE 58 U/L (46-116); ASPARTATE AMINOTRANSFERASE 17 U/L (15-37); BILIRUBIN,DIRECT 0.1 mg/dL (0.0-0.2); BILIRUBIN,TOTAL 0.5 mg/dL (0.2-1.0); TOTAL PROTEIN, SERUM 7.7 g/dL (6.4-8.2)
[2024-03-02 16:07] LABS: APPEARANCE,URINE CLOUDY (CLEAR); BILIRUBIN,URINE NEGATIVE (NEGATIVE); BLOOD, URINE 1+ Ery/uL (NEGATIVE); COLOR,URINE YELLOW (YELLOW); KETONES,URINE NEGATIVE (NEGATIVE); LEUKOCYTE ESTERASE ,URINE 3+ (NEGATIVE); NITRITE, URINE POSITIVE (NEGATIVE); PROTEIN,URINE 1+ mg/dl (NEGATIVE); UGLUCOSE NEGATIVE (NEGATIVE)
[2024-03-02 16:17] LABS: WBC,URINE 51-80 /HPF (0-3)
[2024-03-02 16:18] LABS: ADD URINE CULTURE YES; BACTERIA,URINE 3+ /HPF (None Seen); SQUAMOUS EPITHELIAL CELL,UR 0-2 /HPF (None Seen)
[2024-03-02] MEDS ORDERED: CEFP200T14 PO (17:13)
[2024-03-02] MEDS: IV NS 0.9% 1,000 ML BAG IV ONE (17:15)
[2024-03-02] MEDS ORDERED: CEFTRIAXONE 1GM BAG (ER ONLY) 50 ML IV ONE (17:16)
[2024-03-02] MEDS: CEFTRIAXONE 1 G in IV D5W 50 ML IV SCH (17:35)
[2024-03-02 18:40] VITALS: BP 149/88; O2SAT 95
== END 2024-03-02 18:45 | disposition left against medical advice (07) ==
LOC: ER 14:14 → UNDOADMIN 15:34 → TELE 15:34 → UNDODISIN 18:40 → ER 18:45
DX: N39.0 Urinary tract infection, site not specified (principal); G93.41 Metabolic encephalopathy; F02.80 Dementia in other diseases classified elsewhere, unspecified severity, without behavioral disturbance, psychotic disturbance, mood disturbance, and anxiety; G30.9 Alzheimer's disease, unspecified; I10 Essential (primary) hypertension; R55 Syncope and collapse; Z60.2 Problems related to living alone
CPT/HCPCS: 99291; 96365; 70450; 93005; 71045; 85025; 80048; 87086; 83605; 80076; 81001; 36415; 84484; J0696 ×2; J7060; G0378

== ENCOUNTER 2024-12-04 17:49 | Inpatient (IN) | payer MEDICARE, OTHER ==
[~2024-12-04] VITALS: Ht 157.5 cm; Wt 83.9 kg
[~2024-12-04 17:49] MED LIST changes: +CEFP200T14 PO; +CYAN-51 PO; -DEXA6TAB6 PO; +ENAL-78 PO; -ENAL10TA39 PO; +ERGO500093 PO
[2024-12-04] MEDS: IV NS 0.9% 500 ML BAG IV ONE (18:48)
[2024-12-04 19:56] LABS: CALCIUM, SERUM 8.3 mg/dL (8.5-10.1); CREATININE 0.7 mg/dL (0.6-1.3)
[2024-12-04] MEDS ORDERED: MAG HYDROX/AL HYDROX/SIMETH 30 ML UDC PO PRN (21:00)
[2024-12-04] MEDS ORDERED: ONDANSETRON HCL/PF 4 MG/2 ML VIAL IVP PRN (21:00)
[2024-12-04 23:44] LABS: BASOPHILS # (AUTO) 0.1 K/uL (0.0-0.2); BASOPHILS % (AUTO) 0.5 % (0.0-2.0); EOSINOPHILS # (AUTO) 0.1 K/uL (0.0-0.7); EOSINOPHILS % (AUTO) 0.7 % (0.0-6.0); HEMATOCRIT 35 % (33-45); HEMOGLOBIN 11.8 g/dL (11.5-14.8); LYMPHOCYTES % (AUTO) 17.7 % (20.0-44.0); MEAN CORPUSCULAR HEMOGLOBIN 29 PG (26.0-33.0); MEAN CORPUSCULAR HGB CONC 34 g/dl (31.0-36.0); MEAN CORPUSCULAR VOLUME 87 fL (82-100); MONOCYTES # (AUTO) 0.8 K/uL (0.1-1.30); MONOCYTES % (AUTO) 6.9 % (2.0-12.0); NEUTROPHILS # (AUTO) 8.3 K/uL (1.8-8.9); NEUTROPHILS % (AUTO) 74.2 % (43.0-81.0); PLATELET COUNT (AUTO) 227 K/uL (150-450); RED BLOOD CELL COUNT(AUTO) 4.02 MIL/uL (4.0-5.2); RED CELL DISTRIBUTION WIDTH 14.3 % (11.5-15.0); WHITE BLOOD COUNT (AUTO) 11.1 K/uL (4.3-11.0)
[2024-12-05 06:42] LABS: BASOPHILS % (AUTO) 0.4 % (0.0-2.0); EOSINOPHILS # (AUTO) 0.1 K/uL (0.0-0.7); EOSINOPHILS % (AUTO) 1.5 % (0.0-6.0); HEMATOCRIT 33 % (33-45); HEMOGLOBIN 11.4 g/dL (11.5-14.8); LYMPHOCYTES # (AUTO) 2.1 K/uL (0.8-4.8); LYMPHOCYTES % (AUTO) 21.6 % (20.0-44.0); MEAN CORPUSCULAR HEMOGLOBIN 30 PG (26.0-33.0); MEAN CORPUSCULAR HGB CONC 35 g/dl (31.0-36.0); MEAN CORPUSCULAR VOLUME 87 fL (82-100); MONOCYTES # (AUTO) 0.8 K/uL (0.1-1.30); MONOCYTES % (AUTO) 7.9 % (2.0-12.0); NEUTROPHILS # (AUTO) 6.7 K/uL (1.8-8.9); NEUTROPHILS % (AUTO) 68.6 % (43.0-81.0); PLATELET COUNT (AUTO) 220 K/uL (150-450); RED BLOOD CELL COUNT(AUTO) 3.77 MIL/uL (4.0-5.2); RED CELL DISTRIBUTION WIDTH 14.1 % (11.5-15.0); WHITE BLOOD COUNT (AUTO) 9.7 K/uL (4.3-11.0)
[2024-12-05 06:51] LABS: INR 1.1 (0.91-1.10); PROTHROMBIN TIME 11.6 SECS (9.2-11.1)
[2024-12-05 07:14] LABS: CALCIUM, SERUM 8.5 mg/dL (8.5-10.1); CREATININE 0.7 mg/dL (0.6-1.3); MAGNESIUM 2.2 mg/dL (1.8-2.4); PHOSPHORUS 3.3 mg/dL (2.5-4.9); POTASSIUM 3.9 mmol/L (3.5-5.1)
[2024-12-05 07:30] VITALS: BP 145/72; TEMP 98.3; O2SAT 94
[2024-12-05] MEDS: PANTOPRAZOLE 40 MG TABLET.DR PO SCH (07:59)
[2024-12-05 16:00] VITALS: BP 128/84; TEMP 97.9; O2SAT 94
[2024-12-05] MEDS: LISINOPRIL (10MG) 10 MG TABLET PO SCH (17:41)
[2024-12-05] MEDS: MAGNESIUM HYDROXIDE 30 ML UDC PO PRN (18:01)
[2024-12-05 20:00] VITALS: BP 140/73; TEMP 97.5; O2SAT 93
[2024-12-05 22:36] LABS: APPEARANCE,URINE CLOUDY (CLEAR); BILIRUBIN,URINE NEGATIVE (NEGATIVE); BLOOD, URINE NEGATIVE Ery/uL (NEGATIVE); COLOR,URINE YELLOW (YELLOW); KETONES,URINE TRACE mg/dL (NEGATIVE); LEUKOCYTE ESTERASE ,URINE 1+ (NEGATIVE); NITRITE, URINE POSITIVE (NEGATIVE); PROTEIN,URINE TRACE mg/dl (NEGATIVE); UGLUCOSE NEGATIVE (NEGATIVE)
[2024-12-05 22:44] LABS: ADD URINE CULTURE YES; BACTERIA,URINE Many /HPF (None Seen); RBC,URINE 0-2 /HPF (0-2); SQUAMOUS EPITHELIAL CELL,UR 0-2 /HPF (None Seen)
[2024-12-06 04:00] VITALS: BP 136/77; TEMP 97.5; O2SAT 93
[2024-12-06 06:48] LABS: BASOPHILS % (AUTO) 0.4 % (0.0-2.0); EOSINOPHILS # (AUTO) 0.3 K/uL (0.0-0.7); EOSINOPHILS % (AUTO) 2.8 % (0.0-6.0); HEMATOCRIT 34 % (33-45); HEMOGLOBIN 11.7 g/dL (11.5-14.8); LYMPHOCYTES # (AUTO) 2.2 K/uL (0.8-4.8); LYMPHOCYTES % (AUTO) 22.2 % (20.0-44.0); MEAN CORPUSCULAR HEMOGLOBIN 29 PG (26.0-33.0); MEAN CORPUSCULAR HGB CONC 34 g/dl (31.0-36.0); MEAN CORPUSCULAR VOLUME 86 fL (82-100); MONOCYTES # (AUTO) 0.7 K/uL (0.1-1.30); NEUTROPHILS # (AUTO) 6.8 K/uL (1.8-8.9); NEUTROPHILS % (AUTO) 67.6 % (43.0-81.0); PLATELET COUNT (AUTO) 244 K/uL (150-450); RED BLOOD CELL COUNT(AUTO) 3.98 MIL/uL (4.0-5.2); WHITE BLOOD COUNT (AUTO) 10.1 K/uL (4.3-11.0)
[2024-12-06 07:00] LABS: INR 1.08 (0.91-1.10); PROTHROMBIN TIME 11.4 SECS (9.2-11.1)
[2024-12-06 07:02] LABS: ALBUMIN 2.6 g/dL (3.4-5.0); BILIRUBIN,TOTAL 0.7 mg/dL (0.2-1.0); CALCIUM, SERUM 8.2 mg/dL (8.5-10.1); CREATININE 0.6 mg/dL (0.6-1.3); POTASSIUM 4.2 mmol/L (3.5-5.1); TOTAL PROTEIN, SERUM 6.7 g/dL (6.4-8.2)
[2024-12-06] MEDS ORDERED: ANESTHESIA TRAY IN PYXIS 1 EA TRAY MC ONE ×2 (07:05→10:45)
[2024-12-06] MEDS ORDERED: BUPIVACAINE 0.5 % PF 150 MG/30 ML VIAL ONE (07:05)
[2024-12-06 08:00] VITALS: BP 151/72; TEMP 97.7; O2SAT 97
[2024-12-06] MEDS ORDERED: FENTANYL PF 100MCG/2ML AMPUL ONE (08:10)
[2024-12-06] MEDS ORDERED: MORPHINE SULFATE INJ 4 MG/ML DISP.SYRIN ONE (08:10)
[2024-12-06] MEDS ORDERED: VANCOMYCIN 1 GM VIAL ONE (08:34)
[2024-12-06] MEDS ORDERED: LABETALOL 20 MG/4 ML VIAL ONE (08:48)
[2024-12-06] MEDS ORDERED: FENTANYL PF 100MCG/2ML AMPUL IV PRN ×2 (10:30)
[2024-12-06] MEDS ORDERED: ONDANSETRON HCL/PF 4 MG/2 ML VIAL IVP PRN (10:30)
[2024-12-06] MEDS ORDERED: IV D5/0.45 NACL W/20 MEQ KCL 1L IV SCH (11:30)
[2024-12-06] MEDS ORDERED: HYDROCODONE/APAP 5/325MG TABLET PO PRN (11:30)
[2024-12-06] MEDS ORDERED: IV D5/0.45 NACL W/20 MEQ KCL 1L IV PRN (11:30)
[2024-12-06] MEDS: IV D5/0.45 NACL W/20 MEQ KCL 1L IV SCH (11:42)
[2024-12-06] MEDS: ACETAMINOPHEN 325 MG TABLET PO PRN (13:42)
[2024-12-06] MEDS: MORPHINE SULFATE INJ 2 MG/ML DISP.SYRIN IV PRN (15:57)
[2024-12-06 16:00] VITALS: BP 128/80; O2SAT 96
[2024-12-06] MEDS: ANCEF 1 GM/50 ML D5W IV SCH (16:29)
[2024-12-07 08:00] VITALS: BP 127/61; TEMP 98.4; O2SAT 96
[2024-12-07] MEDS: MORPHINE SULFATE INJ 2 MG/ML DISP.SYRIN IV PRN (09:32)
[2024-12-07 10:26] LABS: CALCIUM, SERUM 8.1 mg/dL (8.5-10.1); CREATININE 0.7 mg/dL (0.6-1.3); POTASSIUM 4.4 mmol/L (3.5-5.1)
[2024-12-07 16:00] VITALS: BP 103/81; TEMP 98.3; O2SAT 96
[2024-12-07 20:00] VITALS: BP 121/63; TEMP 99.5; O2SAT 95
[2024-12-07 20:30] VITALS: TEMP 98.7
[2024-12-07 20:34] VITALS: BP 121/63; TEMP 99.5; O2SAT 95
[2024-12-08 08:00] VITALS: BP 119/62; TEMP 98.1; O2SAT 96
[2024-12-08 09:21] LABS: CALCIUM, SERUM 8.2 mg/dL (8.5-10.1); CREATININE 0.6 mg/dL (0.6-1.3); POTASSIUM 4.2 mmol/L (3.5-5.1)
[2024-12-08 16:00] VITALS: BP 115/64; TEMP 97.5; O2SAT 98
[2024-12-08] MEDS: MORPHINE SULFATE INJ 2 MG/ML DISP.SYRIN IM ONE (17:41)
[2024-12-08 20:00] VITALS: BP 120/55; TEMP 98.1; O2SAT 94
== END 2024-12-08 19:00 | DRG 481 ==
LOC: ER 17:56 → MED 21:00
PROVIDERS: ADMIT Nurse Practitioner Family; ATTEND Internal Medicine
PROC: 0QS606Z Reposition Right Upper Femur with Intramedullary Internal Fixation Device, Open Approach (ICD-10-PCS; principal; 2024-12-06 08:00)
DX: S72.141A Displaced intertrochanteric fracture of right femur, initial encounter for closed fracture (principal); D68.59 Other primary thrombophilia; G93.49 Other encephalopathy; W01.0XXA Fall on same level from slipping, tripping and stumbling without subsequent striking against object, initial encounter; I10 Essential (primary) hypertension; E66.9 Obesity, unspecified; E78.5 Hyperlipidemia, unspecified; M17.11 Unilateral primary osteoarthritis, right knee; F03.90 Unspecified dementia, unspecified severity, without behavioral disturbance, psychotic disturbance, mood disturbance, and anxiety; Z68.33 Body mass index [BMI] 33.0-33.9, adult; R73.9 Hyperglycemia, unspecified; Y93.9 Activity, unspecified; Y92.009 Unspecified place in unspecified non-institutional (private) residence as the place of occurrence of the external cause
CPT/HCPCS: 36415; 71045-TC; 73502; 73564-TC; 80048-TC; 80053-TC; 81001; 83735-TC; 84100-TC; 85025-TC; 85610-TC; 85730-TC; 86850-TC; 87086-TC; 92526; 92611-TC; 93307-TC; 97110-TC; 97530-TC; A4223; G0378; J0690; J2270; J2405; J2704; J2765; J3010; J3370; J3480; J3490; J7030; J7040; J7060